=== PATIENT | female | born 1985 | race Asian ===

== ENCOUNTER 2023-06-20 03:50 | Emergency (ER) | payer MEDICAID ==
[~2023-06-20] VITALS: Ht 160 cm; Wt 57.0 kg
[2023-06-20 03:59] VITALS: TEMP 97.7
[2023-06-20] MEDS ORDERED: ALBUTEROL SULFATE 2.5 MG/0.5 ML 5 ML NEB SOLUTION NEB ONE (04:15)
[2023-06-20] MEDS ORDERED: IPRATROPIUM BROMIDE 0.5 MG/2.5 ML NEB SOLUTION NEB ONE (04:15)
[2023-06-20 04:16] VITALS: PULSE 122; RESP 18; O2SAT 98
[2023-06-20] MEDS ORDERED: ALBUTEROL SULFATE HFA 90 MCG/PUFF 8 GM INHALER IH ONE (04:30)
[2023-06-20] MEDS ORDERED: DEXAMETHASONE SOD PHOS 4 MG/ML 5 ML VIAL IM ONE (04:30)
[2023-06-20 05:30] VITALS: BP 131/79; PULSE 112; RESP 17
[2023-06-21] MEDS ORDERED: PRED-554 PO (22:27)
[2023-06-21] MEDS ORDERED: ALBU2.5V39 NEB (23:03)
== END 2023-06-20 05:30 | disposition home or self-care (01) ==
LOC: EMS 03:53
DX: J45.909 Unspecified asthma, uncomplicated (principal)
CPT/HCPCS: 99285; 94644; 96372; J1100; Q9967; J3535

== ENCOUNTER 2023-06-21 20:06 | Emergency (ER) | payer MEDICAID ==
[~2023-06-21] VITALS: Ht 160 cm; Wt 57.0 kg
[2023-06-21] MEDS ORDERED: IPRATROPIUM BROMIDE 0.5 MG/2.5 ML NEB SOLUTION NEB ONE (20:30)
[2023-06-21] MEDS ORDERED: PredniSONE 20 MG TABLET PO ONE (20:30)
[2023-06-21] MEDS ORDERED: ALBUTEROL SULFATE 2.5 MG/0.5 ML NEB SOLUTION NEB ONE (20:30)
[2023-06-21 21:40] VITALS: PULSE 91; RESP 18; O2SAT 96
[2023-06-21 21:41] VITALS: PULSE 91; RESP 17; O2SAT 96
[2023-06-21 22:00] VITALS: BP 132/88; PULSE 89; RESP 17; TEMP 97.3
[2023-06-21] MEDS ORDERED: PRED-554 PO (22:27)
[2023-06-21] MEDS ORDERED: ALBU2.5V39 NEB (23:03)
== END 2023-06-22 03:43 | disposition home or self-care (01) ==
LOC: EMS 20:09
DX: J45.909 Unspecified asthma, uncomplicated (principal)
CPT/HCPCS: 99283; 94640; J7512

== ENCOUNTER 2023-07-28 12:50 | Emergency (ER) | payer MEDICAID ==
[~2023-07-28] VITALS: Ht 157.5 cm; Wt 64.5 kg
[~2023-07-28 12:50] MED LIST: ALBU2.5V39 NEB; PRED-554 PO
[2023-07-28] MEDS ORDERED: SODIUM CHLORIDE 0.9% 1,950 ML IV ONE (13:15)
[2023-07-28] MEDS ORDERED: 0.9% SODIUM CHLORIDE 10 ML SYRINGE IVP PRN ×2 (13:15→21:45)
[2023-07-28 13:39] LABS: BASOPHILS % (AUTO) 0.9 % (0.0-2.0); EOSINOPHILS % (AUTO) 9.1 % (1.0-6.0); HEMOGLOBIN 12.9 g/dL (12.0-16.0); LYMPHOCYTES # (AUTO) 1.3 K/uL (1.0-4.8); LYMPHOCYTES % (AUTO) 15.5 % (22.0-44.0); MEAN CORPUSCULAR HEMOGLOBIN 31.1 pg (26.0-34.0); MEAN CORPUSCULAR HGB CONC 33.9 G/dL (31.0-37.0); MEAN CORPUSCULAR VOLUME 92 fL (80-100); MONOCYTES # (AUTO) 0.7 K/uL (0.1-1.0); MONOCYTES % (AUTO) 7.7 % (2.0-9.0); NEUTROPHILS # (AUTO) 5.8 K/uL (1.8-7.7); NEUTROPHILS % (AUTO) 66.8 % (40.0-70.0); PLATELET COUNT (AUTO) 304 K/uL (150-450); RED BLOOD CELL COUNT(AUTO) 4.14 MIL/uL (4.00-5.20); RED CELL DISTRIBUTION WIDTH 13.4 % (11.5-14.5); WHITE BLOOD COUNT (AUTO) 8.7 K/uL (4.5-11.0)
[2023-07-28 13:52] LABS: ANION GAP 9 mmol/L (8-16); CALCIUM, TOTAL 9.1 mg/dL (8.8-10.5); CARBON DIOXIDE 26 mmol/L (22-29); CHLORIDE 101 mmol/L (98-107); CREATININE 0.82 mg/dL (0.60-1.30); GLOMERULAR FILTR. RATE CALC > 60 mL/min (>60); GLUCOSE,RANDOM 91 mg/dL (70-110); POTASSIUM 3.4 mmol/L (3.5-5.1); SODIUM SERUM 136 mmol/L (136-145); UREA NITROGEN, BLOOD 7 mg/dL (7-18)
[2023-07-28 14:03] LABS: ALANINE AMINOTRANSFERASE 24 U/L (12-78); ALBUMIN 3.8 g/dL (3.4-5.0); ALKALINE PHOSPHATASE 36 U/L (46-116); ASPARTATE AMINOTRANSFERASE 27 U/L (15-37); BILIRUBIN,TOTAL 0.3 mg/dL (0.1-1.0); HCG,QUANTITATIVE < 1 mIU/mL (0-6); TOTAL PROTEIN, SERUM 8.6 g/dL (6.4-8.2)
[2023-07-28 14:05] LABS: COVID AG,FIA SOURCE NASAL SWAB
[2023-07-28 14:28] LABS: INFLUENZA TYPE A NEGATIVE FOR TYPE A (NEGATIVE); INFLUENZA TYPE B NEGATIVE FOR TYPE B (NEGATIVE)
[2023-07-28 14:34] LABS: SARS-COV2 (COVID) ANTIGEN,FIA Positive (Negative)
[2023-07-28] MEDS ORDERED: KETOROLAC TROMETHAMINE 30 MG/ML VIAL IVP ONE (15:00)
[2023-07-28] MEDS ORDERED: MethylPREDNISolone SOD SUCC 125 MG/2 ML VIAL IVP ONE (16:15)
[2023-07-28 16:29] VITALS: PULSE 119; RESP 25; O2SAT 95
[2023-07-28 16:30] VITALS: PULSE 119; RESP 25; O2SAT 95
[2023-07-28] MEDS ORDERED: IPRATROPIUM BROMIDE 0.5 MG/2.5 ML NEB SOLUTION NEB ONE (16:30)
[2023-07-28] MEDS ORDERED: ALBUTEROL SULFATE 2.5 MG/0.5 ML NEB SOLUTION NEB ONE ×2 (16:30)
[2023-07-28 16:45] VITALS: PULSE 122; RESP 12; O2SAT 96
[2023-07-28 17:43] LABS: APPEARANCE,URINE CLEAR (CLEAR); BILIRUBIN,URINE NEGATIVE (NEGATIVE); COLOR,URINE LIGHT YELLOW (YELLOW); GLUCOSE, URINE (UA) NEGATIVE (NEGATIVE); KETONES,URINE NEGATIVE (NEGATIVE); LEUKOCYTE ESTERASE ,URINE TRACE (NEGATIVE); NITRATE,URINE NEGATIVE (NEGATIVE); OCCULT BLOOD,URINE MODERATE (NEGATIVE); PROTEIN,URINE NEGATIVE (NEGATIVE); SPECIFIC GRAVITIY, URINE 1.017 (1.003-1.030); UROBILINOGEN,URINE <=1.0 mg/dL (<=1.0)
[2023-07-28 18:13] LABS: BACTERIA,URINE None Seen /HPF (None Seen); SQUAMOUS EPITHELIAL CELL,UR Few /LPF (None Seen); WBC,URINE 0-2 /HPF (0-5)
[2023-07-28 19:40] VITALS: BP 158/97; PULSE 151; RESP 20; TEMP 99.8
[2023-07-28] MEDS ORDERED: OxyCODONE HCL/ACETAMINOPHEN 5-325 MG TABLET PO PRN ×2 (21:45)
[2023-07-28] MEDS ORDERED: DOCUSATE SODIUM 100 MG CAPSULE PO SCH (21:45)
[2023-07-28] MEDS ORDERED: MAGNESIUM HYDROXIDE SUSPENSION 30 ML UDCUP PO PRN (21:45)
[2023-07-28] MEDS ORDERED: ONDANSETRON HCL 4 MG/2 ML VIAL IVP PRN (21:45)
[2023-07-28] MEDS ORDERED: ACETAMINOPHEN 325 MG TABLET PO PRN (21:45)
[2023-07-28] MEDS ORDERED: ALBUTEROL SULFATE 2.5 MG/0.5 ML NEB SOLUTION NEB PRN (21:45)
[2023-07-28] MEDS ORDERED: MethylPREDNISolone SOD SUCC 125 MG/2 ML VIAL IVP SCH (21:45)
[2023-07-29] MEDS ORDERED: IPRATROPIUM BROMIDE 0.5 MG/2.5 ML NEB SOLUTION NEB SCH (02:00)
[2023-07-29] MEDS ORDERED: ALBUTEROL SULFATE 2.5 MG/0.5 ML NEB SOLUTION NEB SCH (02:00)
[2023-07-29] MEDS ORDERED: PANTOPRAZOLE SODIUM 40 MG/VIAL IVP SCH (09:00)
[2023-07-29] MEDS ORDERED: HEPARIN SODIUM,PORCINE 5,000 UNITS/ML VIAL SQ SCH (09:00)
== END 2023-07-28 21:04 | disposition home or self-care (01) ==
LOC: EMS 12:50 → UNDOADMIN 19:07 → 5N 19:07
DX: U07.1 COVID-19 (principal); J45.901 Unspecified asthma with (acute) exacerbation; E87.6 Hypokalemia
CPT/HCPCS: 99285; 96374; 71045; 96361; 96375; 87426; 80053; 81001; 81002; 83605; 84702; 85025; 85610; 87040; 87804; 36415; 94640; 93005; 84145; J1885; J2930; J7030; C9803; J7613